=== PATIENT | male | born 1990 | race Caucasian/White ===

== ENCOUNTER 2024-04-18 14:14 | Outpatient (CLI) | payer OTHER, SELFPAY ==
--- NOTE | ~2024-04-18 | XR_ITS ---
EXAM: XR abdomen obstructive series DATE: 04/18/2024 14:42 HISTORY: Abd pain, RT LOWER ABDOMINAL PAIN . COMPARISON: None available. FINDINGS: Clear lung bases. Normal bowel gas pattern. Preserved. No flank stripes. The liver measure s 19.8 cm. The spleen measures 14.6 cm. No abnormal abdominal calcification. Regional bones and soft tissues normal for age. IMPRESSION: Hepatosplenomegaly. No radiographic evidence of obstruction or ileus. Reviewed, dictated and finalized at location [facility]. [facility] IMPRESSION: Hepatosplenomegaly. No radiographic evidence of obstruction or ileu s.
--- OUTSIDE RECORDS SUMMARY | 2024-04-18 15:17 | XMS_ITS | Referral Summary ---
Author Organization [facility] Address [address] [place] [address] Care Team Providers Care Sales Manager Prearranged Funerals Name Role Phone Unavailable Primary Care Provider Unavailabl e Source Comments [facility],non-owned Affiliates and Associated Physician Practices is amultiple site organization consisting of ambulatory clinics and hospital sitesin [place], [place], [place] and [place]. This disclosure is being madepursuant to the Care Everywhere program and may not contain all information available regarding this patient. Last updated 17.[facility] Social History Tobacco Use Types Packs/Day Years Used Date Smoking Tobacco: Never Assessed Sex and Gender Information Value Date Recorded Sex Assigned at Not on file Gender Identity Not on file Sexual Orientation Not on file Plan of Treatment Not on file
--- OUTSIDE RECORDS SUMMARY | 2024-04-18 15:17 | XMS_ITS | Clinical Summary ---
Author Organization [facility] Address [address] [place] [address] Care Team Providers Care Chemist Physical Name Role Phone Unavailable Primary Care Provider Unavailabl e Source Comments [facility],non-owned Affiliates and Associated Physician Practices is amultiple site organization consisting of ambulatory clinics and hospital sitesin [place], [place], [place] and [place]. This disclosure is being madepursuant to the Care Everywhere program and may not contain all information available regarding this patient. Last updated 17.[facility] Social History Tobacco Use Types Packs/Day Years Used Date Smoking Tobacco: Never Assessed Sex and Gender Information Value Date Recorded Sex Assigned at Not on file Gender Identity Not on file Sexual Orientation Not on file Plan of Treatment Health Maintenance Due Date Last Done Comments HIV SCREENING 2005 HEPATITIS C SCREENING 11/11/2008 DTAP/TDAP/TD VACCINES (1 - Tdap) 2009 HEPATITIS B VACCINE (1 of 3 - 19+ 3-dose series) 2009 COVID-19 VACCINE ( - 2023-2 5 season) 2023 INFLUENZA VACCINE (#1) 2023 DEPRESSION SCREENING 03/21/2024 ZOSTER VACCINE (1 of 2) 2040 HIB VACCINE Aged Out No longer eligi ble based on patient's age to complete this topic HPV VACCINE Aged Out No longer eligi ble based on patient's age to complete this topic MENINGOCOCCAL (Group B) VACCINE Aged Out No longer eligible based on patient's age to complete this topic MENINGOCOCCAL VACCINE Aged Out No kate traci eligible based on patient's age to complete this topic PNEUMOCOCCAL VACCINE Aged Out No long er eligible based on patient's age to complete this topic
--- OUTSIDE RECORDS SUMMARY | 2024-04-18 15:17 | XMS_ITS | Patient Health Summary ---
Author Organization [facility] Address [address] [place] [address] Care Team Providers Care Advertising Job Titles Name Role Phone Unavailable Primary Care Provider Unavailabl e Note from [facility],non-owned Affiliates and Associated Physician Practices is amultiple site organization consisting of ambulatory clinics and hospital sitesin [place], [place], [place] and [place]. This disclosure is being madepursuant to the Care Everywhere program and may not contain all information available regarding this patient. Last updated 17.[facility] Social History Tobacco Use Types Packs/Day Years Used Date Smoking Tobacco: Never Assessed Sex and Gender Information Value Date Recorded Sex Assigned at Not on file Gender Identity Not on file Sexual Orientation Not on file Procedures * GROSS + MICRO EXAM(Performed 07/12/1996) * GROSS + MICRO EXAM(Performed 11/05/1994) Results * GROSS + MICRO EXAM (07/12/1996 11:30 AM CDT) Only the most recent of2 resultswithin the time period is included. Result CASE NUMBER [id number] [facility] PATH REPORT Comment: ORDERING PHYSICIAN ??DEUCE VIERA SPECIMEN TYPE ?Hernia Sac-Rt.Inguinal CLINICAL HISTORY ? The patient is a 5-year-old boy with a right inguinal hernia who underwent repair of the same. ?? GROSS DESCRIPTION ? The specimen labeled right inguinal hernia sac is received fresh for gross and microscopic examination and consists of a 3.2 x 1.2 x 0.3 cm membranous portion of glistening pink-white soft tissue submitted in toto as A1 . ??(CT/hm) MICROSCOPIC DESCRIPTION ? 1 slide, H/E Sections show fibrovascular tissue partially lined by mesothelium. ??(ET/hm) DIAGNOSIS ? DIAGNOSIS ?RIGHT INGUINAL REGION, HERNIORRHAPHY ? - MESOTHELIAL LINED FIBROUS CONNECTIVE TISSUE ? CONSISTENT WITH HERNIA SAC. Larder Cook ? CHANCE DREW PATHOLOGIST ?Jamie Davey M.D. ELECTRONICALLY HAIR JAMIE DAVEY MISCELLANEOUS SAMPLES / Unknown 07/12/1996 11:30 AM CDT 07/12/1996 2:04 PM CDT Historical Provider LAB - PATHOLOGY/C YTOLOGY ORDERABLES [facility] PATH REPORT
--- OUTSIDE RECORDS SUMMARY | 2024-04-18 15:17 | XMS_ITS | Continuity of Care Document ---
Author Organization [facility] Address [address] [place] [address] Phone Care Team Providers Care Food Court Team Member Name Role Phone Arriaga OD, Remigio Unavailable Unavailable Advance Directives Directive Yes / No Effective Date File Name No Information Encounters Encounter Description Practice Location Reason(s) For Visit Diagnoses Date Provider Providers Copied on Encounter [facility], [address], [place], [place], [id number], [place] tel:[phone] [facility] No Information Mar-0 4-200 6 Arriaga OD Remigio. [address] , [address], [place], [address], [place]. tel:[phone] Family History Family Member Type Diagnosis Age At Onset No Information Payers Payer name Insurance type Covered libertarian ID Authoriza tion(s) No Information Social History Type Description Quantity Date Captured Comments Sex Male Smoking Status No Information Chief Complaint And Reason For Visit No Information Reason For Referral Reason For Referral No Information History Of Present Illness Encounter Date Complaint History Of Prese nt Illness No Information Functional Status Date Functional Assessmen t No Information Instructions Date Instruction Additional Infor mation No Information Assessments Type Assessment Date No Information Patient Care Teams Name Effective Dates (start - stop) Status Members No Information
== END 2024-04-18 14:15 | disposition home or self-care (01) ==
LOC: ANHIMG 14:25
PROVIDERS: Visit Provider Nurse Practitioner Family
DX: R16.2 Hepatomegaly with splenomegaly, not elsewhere classified (principal)
CPT/HCPCS: 74019